=== PATIENT | female | born 1980 | race Caucasian/White ===

== ENCOUNTER 2022-03-29 07:20 | Outpatient (CLI) | payer OTHER, SELFPAY ==
--- NOTE | 2022-03-29 07:15 | CRLHL7_ITS ---
For Patients: As a result of the Century Cures Act, medical imaging exams and procedure reports are released immediately into your electronic medical record. You may view this report before your referring provider. If you have questions, please contact your health care provider. INDICATION: meningioma. Follow-up Comparison 08/27/2018, 12/27/2016, 01/12/2016. TECHNIQUE: Multiplanar T1, T2, FLAIR and diffusion-weighted imaging.. Post gadolinium T1 weighted sequences. FINDINGS: Stable postoperative changes of left frontal craniotomy for resection of meningioma. No residual recurrent tumor. No new abnormal enhancement or enhancing lesions elsewhere. Otherwise, normal brain parenchymal morphology. Stable encephalomalacia gliosis of the anterior left temporal lobe which may be due to old contusion. Scattered foci of T2/FLAIR signal hyperintensity within the white matter consistent with chronic small vessel ischemic changes or sequela of migraine headache No intracranial hemorrhage. No abnormal ventricular dilatation. Intracranial vascular flow voids preserved. No mass effect or midline shift. No restricted diffusion to suggest acute ischemia. Bilateral orbits are unremarkable. Normal appearing sella. Visualized paranasal sinuses and mastoid air cells are unremarkable. IMPRESSION: 1. Stable postop changes left frontal craniotomy for resection of meningioma. No residual or recurrent tumor. 2. No new abnormal enhancement or enhancing lesions elsewhere. 3. No acute intracranial abnormality. 4. Stable focal encephalomalacia and gliosis of the anterior inferior left temporal lobe which may be due to old contusion. 5. Otherwise, normal brain parenchymal morphology. Scattered foci of T2 signal within the white matter consistent with chronic small vessel ischemic changes or sequela of migraine headache Dictated by Winston Grajeda MD @ 03/29/2022 4:35:34 PM (Electronically Signed)
== END 2022-03-29 07:21 | disposition home or self-care (01) ==
PROVIDERS: PCP Family Medicine; Visit Provider Family Medicine
DX: Z86.011 Personal history of benign neoplasm of the brain (principal); G93.89 Other specified disorders of brain
CPT/HCPCS: 70553; A9575

== ENCOUNTER 2022-07-06 11:24 | Outpatient (CLI) | payer OTHER, SELFPAY ==
[2022-07-06 14:29] LABS: Albumin* 4.9 g/dL (3.3-5.0)
[2022-07-06 14:32] LABS: Alanine Aminotransferase* 37 U/L (4-35); Alkaline Phosphatase* 82 U/L (40-150); Aspartate Amino Transferase* 28 U/L (12-35); Bilirubin Direct* 0.1 mg/dL (0.0-0.5); Bilirubin Total* 0.6 mg/dL (0.1-1.5); Total Protein* 7.5 g/dL (6.0-8.3)
== END 2022-07-06 11:25 | disposition home or self-care (01) ==
PROVIDERS: PCP Family Medicine; Visit Provider Nurse Practitioner Family
DX: Z79.899 Other long term (current) drug therapy (principal)
CPT/HCPCS: 80076; 84443

== ENCOUNTER 2023-03-31 12:39 | Outpatient (CLI) | payer OTHER, SELFPAY ==
--- NOTE | 2023-03-31 13:00 | CRLHL7_ITS ---
For Patients: As a result of the Cures Act, medical imaging exams and procedure reports are released immediately into your electronic medical record. You may view this report before your referring provider. If you have questions, please contact your health care provider. BILATERAL SCREENING MAMMOGRAM WITH COMPUTER-AIDED DETECTION AND TOMOSYNTHESIS TECHNIQUE: CC and MLO views were obtained. These mammographic images have been obtained using full-field digital technique. These mammographic images were interpreted with the benefit of computer-aided detection. Breast Tomosynthesis was used in this interpretation. COMPARISON FILM: 01/01/21, 11/19/15. FINDINGS: The breasts are heterogeneously dense, which may obscure small masses IMPRESSION: There is no radiographic evidence for malignancy. ASSESSMENT: BI-RADS Category 1: Negative RECOMMENDATION: Routine screening mammogram in 1 year. A lay language report of this examination will be provided to the patient. João Jaeger M.D. Diagnostic Radiologist [email or web address] ANSON/[email or web address] / be/Dictated by: João Jaeger MD @ 04/03/2023 8:33:00 AM (Electronically Signed)
== END 2023-03-31 12:40 | disposition home or self-care (01) ==
LOC: MAMMO 12:41
PROVIDERS: PCP Family Medicine; Visit Provider Advanced Practice Midwife
DX: Z12.31 Encounter for screening mammogram for malignant neoplasm of breast (principal); R92.2 Inconclusive mammogram
CPT/HCPCS: 77063; 77067

== ENCOUNTER 2023-06-12 11:05 | Outpatient (CLI) | payer OTHER, SELFPAY | END 2023-06-12 11:06 | disposition home or self-care (01) | LOC: NFLDREF 06-13 22:32 | PROVIDERS: PCP Family Medicine; Referring Provider Family Medicine; Visit Provider Advanced Practice Midwife | DX: Z20.5 Contact with and (suspected) exposure to viral hepatitis (principal) | CPT/HCPCS: 86803 ==

== ENCOUNTER 2023-09-07 08:59 | Outpatient (CLI) | payer OTHER, SELFPAY | END 2023-09-07 09:00 | disposition home or self-care (01) | PROVIDERS: PCP Family Medicine; Visit Provider Physician Assistant | DX: Z01.419 Encounter for gynecological examination (general) (routine) without abnormal findings (principal); R68.82 Decreased libido; R03.0 Elevated blood-pressure reading, without diagnosis of hypertension; M25.50 Pain in unspecified joint; R68.2 Dry mouth, unspecified; Z13.29 Encounter for screening for other suspected endocrine disorder; Z13.6 Encounter for screening for cardiovascular disorders; Z13.1 Encounter for screening for diabetes mellitus | CPT/HCPCS: 80053; 80061; 84443; 86039; 86140; 86235; 86431 ==

== ENCOUNTER 2023-11-16 10:00 | Outpatient (RCR) | payer OTHER, SELFPAY | END 2024-02-07 13:14 | disposition home or self-care (01) | PROVIDERS: PCP Family Medicine; Visit Provider Physician Assistant | DX: N39.46 Mixed incontinence (principal); Z51.89 Encounter for other specified aftercare | CPT/HCPCS: 97110; 97161; 97535 ==

== ENCOUNTER 2024-04-12 13:25 | Outpatient (CLI) | payer OTHER, SELFPAY ==
--- NOTE | 2024-04-12 13:40 | CRLHL7_ITS ---
For Patients: As a result of the Century Cures Act, medical imaging exams and procedure reports are released immediately into your electronic medical record. You may view this report before your referring provider. If you have questions, please contact your health care provider. BILATERAL SCREENING MAMMOGRAM WITH COMPUTER-AIDED DETECTION AND TOMOSYNTHESIS TECHNIQUE: CC and MLO views were obtained. These mammographic images have been obtained using full-field digital technique. These mammographic images were interpreted with the benefit of computer-aided detection. Breast Tomosynthesis was used in this interpretation. COMPARISON FILM: 03/31/2023, 01/01/2021, 11/19/2015. FINDINGS: The breasts are heterogeneously dense, which may obscure small masses. IMPRESSION: There is no radiographic evidence for malignancy. ASSESSMENT: BI-RADS Category 1: Negative RECOMMENDATION: Routine screening mammogram in 1 year. A lay language report of this examination will be provided to the patient. João Jaeger M.D. Diagnostic Radiologist [email or web address] SP/Dictated by: João Jaeger MD @ 04/15/2024 8:55:00 AM (Electronically Signed)
== END 2024-04-12 13:26 | disposition home or self-care (01) ==
PROVIDERS: PCP Family Medicine; Visit Provider Physician Assistant
DX: Z12.31 Encounter for screening mammogram for malignant neoplasm of breast (principal); R92.2 Inconclusive mammogram
CPT/HCPCS: 77063; 77067

== ENCOUNTER 2024-09-27 14:06 | Outpatient (CLI) | payer OTHER, SELFPAY | END 2024-09-27 14:07 | disposition home or self-care (01) | LOC: NFLDREF 14:07 | PROVIDERS: PCP Registered Nurse; Visit Provider Family Medicine | DX: Z79.899 Other long term (current) drug therapy (principal) | CPT/HCPCS: 80053 ==

== ENCOUNTER 2025-06-17 17:51 | Emergency (ER) | payer OTHER, SELFPAY ==
[2025-06-17 18:04] VITALS: BP 132/85; PULSE 91; RESP 20; TEMP 36.1; O2SAT 99; BMI 33.4
--- NOTE | 2025-06-17 20:28 | ED.GENADULT ---
HPI - General Adult General Time Seen by Provider: 20:29 Date Seen: 06/17/25 Chief complaint: Unspecified Complaint, Adult Stated complaint: L hand pain post stiches in thumb Time Seen by Provider: 06/17/25 20:28 Source: patient Mode of arrival: ambulatory History of Present Illness HPI narrative: Chelly is a 45 yo female who presents to the ED for evaluation of left thumb pain. Patient states that she cut her left thumb on Monday with a knife while carving a pumpkin. Patient states that she did not think anything of it however the next day she still had some bleeding soon to urgent care Monday in the morning. Patient reports that on Monday she did have a laceration repair and did have 2 injections of lidocaine directly into the distal aspect of her thumb. Patient states she did have severe pain with injections which then resolved. Patient reports bacitracin and Telfa dressing and Coban compression applied locally, splinted for immobilization. Patient reports since this time she has had severe pain, and fullness/pressure in the distal aspect of her thumb. Patient reports trying to take Tylenol ibuprofen with no improvement of pain. Patient denies any fever, chills, no other complaints. Related Data Home Medications ?Medication ?Instructions ?Recorded ?Confirmed glucosamine-chondroitin 250 mg-200 1 tab PO ONCE 03/28/23 06/16/25 mg tablet (Osteo Bi-Flex) magnesium hydroxide 400 mg/5 mL 400 mg PO ONCE 03/28/23 06/16/25 oral suspension (Dulcolax (magnesium hydroxide)) calcium 325 mg-vit D3 12.5 1 tab PO BID 04/19/24 06/16/25 mcg-zinc 2.75 or-[id number] tablet (Citracal-D3 Maximum Plus) triamcinolone acetonide 0.1 % 1 applic topical BID PRN 01/16/25 06/16/25 topical ointment Previous Rx's ?Medication ?Instructions ?Recorded ondansetron HCl 4 mg tablet 4 mg PO Q8H PRN nausea and 09/15/22 vomiting #60 tabs epinephrine 0.3 mg/0.3 mL 0.3 mg (0.3 mL) IM Q5-15M PRN 12/24/24 injection, auto-injector (EpiPen anaphylaxis #2 ea 2-Donn) buspirone 30 mg tablet 30 mg PO BID #180 tabs 01/16/25 desvenlafaxine succinate 100 mg 100 mg PO DAILY #90 tabs 01/16/25 tablet,extended release 24 hr estradiol 0.01% (0.1 mg/gram) 1 g vaginal 3XW #42.5 grams 01/16/25 vaginal cream estradiol 0.1 mg/24 hr semiweekly 1 patch transdermal 2XW #24 ea 01/16/25 transdermal patch lamotrigine 150 mg tablet 150 mg PO DAILY #90 tabs 01/16/25 lorazepam 1 mg tablet 1 mg PO BID PRN anxiety #20 tabs 01/16/25 minoxidil 2.5 mg tablet 2.5 mg PO QDAY #90 tabs 01/16/25 propranolol 10 mg tablet 10 mg PO BID PRN anxiety #30 tabs 01/16/25 trazodone 50 mg tablet 50 mg PO QHS PRN sleep #90 tabs 01/16/25 dextroamphetamine-amphetamine 10 10 mg PO QDAY #90 tabs 02/27/25 mg tablet dextroamphetamine-amphetamine ER 30 mg PO QAM #90 caps 04/02/25 30 mg 24hr capsule,extend release Allergies Allergy/AdvReac Type Severity Reaction Status Date / Time tree nut Allergy Severe Anaphylaxis Verified 06/16/25 11:50 Review of Systems Narrative: Past medical history, past surgical history, medications, allergies, family history, and social history were reviewed with the patient. No additional pertinent items. A medically appropriate review of systems was performed with pertinent positives and negatives noted in HPI, all other systems negative. [facility] Medical History (Updated 06/17/25 @ 21:15 by Anju Lazo MD) History of basal cell carcinoma ?Z85.828 - Personal history of other malignant neoplasm of skin (ICD-10) History of Mohs micrographic surgery for skin cancer ?Z85.828 - Personal history of other malignant neoplasm of skin (ICD-10) ?Z98.890 - Other specified postprocedural states (ICD-10) Obesity (BMI 30-39.9) ?E66.9 - Obesity, unspecified (ICD-10) History of vitamin D deficiency ?Z86.39 - Personal history of other endocrine, nutritional and metabolic disease (ICD-10) Dry eyes ?H04.123 - Dry eye syndrome of bilateral lacrimal glands (ICD-10) Dry mouth ?R68.2 - Dry mouth, unspecified (ICD-10) Joint pain ?M25.50 - Pain in unspecified joint (ICD-10) ANURADHA (stress urinary incontinence, female) ?N39.3 - Stress incontinence (female) (male) (ICD-10) Migraine ?G43.909 - Migraine, unspecified, not intractable, without status migrainosus (ICD-10) Perimenopausal vasomotor symptoms ?N95.1 - Menopausal and female climacteric states (ICD-10) Hormone replacement therapy ?Z79.890 - Hormone replacement therapy (ICD-10) Pseudoangiomatous stromal hyperplasia of breast ?N64.89 - Other specified disorders of breast (ICD-10) Decreased libido ?R68.82 - Decreased libido (ICD-10) Hypertension ?I10 - Essential (primary) hypertension (ICD-10) Cauda equina compression (2013) ?G83.4 - Cauda equina syndrome (ICD-10) Meningioma ?D32.9 - Benign neoplasm of meninges, unspecified (ICD-10) Insomnia ?G47.00 - Insomnia, unspecified (ICD-10) ADD (attention deficit disorder) ?F98.8 - Other specified behavioral and emotional disorders with onset usually occurring in childhood and adolescence (ICD-10) PTSD (post-traumatic stress disorder) ?F43.10 - Post-traumatic stress disorder, unspecified (ICD-10) Anxiety ?F41.9 - Anxiety disorder, unspecified (ICD-10) Depression ?F32.A - Depression, unspecified (ICD-10) Surgical History Hx of LASIK ?Z98.890 - Other specified postprocedural states (ICD-10) History of lumpectomy of right breast (02/04/21) ?Z98.890 - Other specified postprocedural states (ICD-10) History of bilateral salpingectomy (04/03/18) ?Z90.79 - Acquired absence of other genital organ(s) (ICD-10) History of total abdominal hysterectomy (04/03/18) ?Z90.710 - Acquired absence of both cervix and uterus (ICD-10) History of D&C (04/06/10) ?Z98.890 - Other specified postprocedural states (ICD-10) History of ?Z98.891 - History of uterine scar from previous surgery (ICD-10) History of laminectomy (09/05/12) ?Z98.890 - Other specified postprocedural states (ICD-10) History of craniotomy (11/05/12) ?Z98.890 - Other specified postprocedural states (ICD-10) Family History Father Prostate cancer Lung cancer Mother Multiple myeloma Aunt Pancreatic cancer Grandfather Pancreatic cancer Prostate cancer Maternal Grandmother Colon cancer Paternal Grandfather Diabetes Uncle Diabetes 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. . Nonsmoker. Social alcohol use. Smoking Status: Never smoker Do you use any of these nicotine containing products: None Second hand tobacco smoke exposure: No How often do you have a drink containing alcohol: never How many standard drinks containing alcohol do you have on a typical day: 1 or 2 How often do you have six or more drinks on one occasion: Never AUDIT-C Alcohol total score: 0 Non-prescribed substance use: denies use service: No Exam Narrative: Exam Narrative: General: Afebrile, no acute distress HEENT: Normocephalic, atraumatic, conjunctiva normal. MMM Neck: non-tender, supple Cardio: regular rate. regular rhythm Resp: Normal work of breathing, no respiratory distress, lungs clear bilaterally, no wheezing, rhonchi, rales Chest/Back: no visual signs of trauma, no midline tenderness, no CVA tenderness Abdomen: soft, non distension, no tenderness, no peritoneal signs Neuro: alert and fully oriented. CN II-XII grossly intact. Grossly normal strength and sensation in all extremities. MSK: left thumb swollen, TTP, sutures in place distal ulna side of left thumb. compartments soft. Patient reports painful range of motion at the DIP, MCP however still has range of motion, no focal motor sensory deficit, no significant erythema, no drainage, no evidence of acute infection. Integumentary/Skin: no rash visualized, normal color Psych: normal affect, normal behavior Const: Vital Signs, click to edit/add: Vital Signs - 24 hr 06/17/25 18:04 Temperature 96.9 F L Pulse Rate [Pulse Oximeter] 91 Respiratory Rate 20 Blood Pressure [Ri ght Upper Arm] 132/85 Pulse Oximetry 99 Oxygen Delivery Me thod Room Air Course Vital Signs Vital signs: Initial Vital Signs Temperature 96.9 F L 06/17/25 18:04 Temperature Source Temporal Artery Scan 06/17/25 18:04 Pulse Rate 91 06/17/25 18:04 Respiratory Rate 20 06/17/25 18:04 Blood Pressure 132/85 06/17/25 18:04 Blood Pressure Mean 100 06/17/25 18:04 Blood Pressure Position Sitting 06/17/25 18:04 Pulse Oximetry 99 06/17/25 18:04 Oxygen Delivery Method Room Air 06/17/25 18:04 Vital Signs Temperature 96.9 F L 06/17/25 18:04 Pulse Rate 91 06/17/25 18:04 Respiratory Rate 20 06/17/25 18:04 Blood Pressure 132/85 06/17/25 18:04 Pulse Oximetry 99 06/17/25 18:04 Oxygen Delivery Method Room Air 06/17/25 18:04 Temperature 96.9 F L 06/17/25 18:04 Pulse Rate 91 06/17/25 18:04 Respiratory Rate 20 06/17/25 18:04 Blood Pressure 132/85 06/17/25 18:04 Pulse Oximetry 99 06/17/25 18:04 Oxygen Delivery Method Room Air 06/17/25 18:04 Medical Decision Making [facility] Narrative Medical decision making narrative: Chelly is a 45 yo female who presents to the ED for evaluation of left thumb pain. Upon arrival patient is nontoxic appearing, afebrile, in distress secondary to pain. On examination patient with significant pain, swelling, including so patient to distress neck her thumb however compartments are soft, patient still has range of motion at her the DIP and MCP, no fullness in thenar or hypothenar eminence. Suspect likely swelling/inflammation secondary to injury, laceration and repair as well as lidocaine. At this time compartments remain soft. No evidence of acute infection. I discussed with patient continue supportive care with ice, elevation, Tylenol, ibuprofen, close outpatient follow-up and strict return precautions discussed if increasing pain, swelling, redness, drainage, inability to range finger or any worsening symptoms. Patient agrees with the plan. Discharge Plan Discharge Clinical Impression: Pain of left thumb, Visit for wound check Patient Disposition: Home, Self-Care Condition: Stable Additional Instructions: Please follow-up in the next 3-5 days if no improvement of your symptoms. Please ice, elevate, continue to take Tylenol and ibuprofen as needed for pain. Please return to the emergency department if he develops severe worsening pain, significant increase in swelling/pressure/fullnesss in which you are not able to move your digit, or any worsening symptoms. It is a pleasure taking care of you today. We hope you feel better soon. Prescriptions: No Action [id number] [Citracal-D3 Maximum Plus] 325 mg-12.5 mcg -2.75 mg tablet 1 tab PO BID triamcinolone acetonide 0.1 % ointment 1 applic topical BID PRN estradiol 0.1 mg/24 hr patch semiweekly 1 patch transdermal 2XW Qty: 24 4RF Rx Instructions: apply 1 patch for 3 days alternating with 1 patch for 4 days each week for 3 wks per 4-wk cycle estradiol 0.01 % (0.1 mg/gram) cream 1 g vaginal 3XW Qty: 42.5 3RF lorazepam 1 mg tablet 1 mg PO BID PRN (Reason: anxiety) Qty: 20 0RF lamotrigine 150 mg tablet 150 mg PO DAILY Qty: 90 3RF desvenlafaxine succinate 100 mg tablet extended release 24 hr 100 mg PO DAILY Qty: 90 3RF buspirone 30 mg tablet 30 mg PO BID Qty: 180 3RF propranolol 10 mg tablet 10 mg PO BID PRN (Reason: anxiety) Qty: 30 2RF Rx Instructions: Take 10 mg at onset of anxiety/palpitations. Use as needed but no more than two times per day. trazodone 50 mg tablet 50 mg PO QHS PRN (Reason: sleep) Qty: 90 3RF minoxidil 2.5 mg tablet 2.5 mg PO QDAY Qty: 90 3RF ondansetron HCl 4 mg tablet 4 mg PO Q8H PRN (Reason: nausea and vomiting) Qty: 60 0RF magnesium hydroxide [Dulcolax (magnesium hydroxide)] 400 mg/5 mL suspension 400 mg PO ONCE glucosamine-chondroitin [Osteo Bi-Flex] 250-200 mg tablet 1 tab PO ONCE Rx Instructions: give after food/meal epinephrine [EpiPen 2-Donn] 0.3 mg/0.3 mL auto-injector 0.3 mg IM Q5-15M PRN (Reason: anaphylaxis) Qty: 2 0RF Rx Instructions: do not exceed 3 doses per episode dextroamphetamine-amphetamine 10 mg tablet 10 mg PO QDAY Qty: 90 0RF dextroamphetamine-amphetamine 30 mg capsule,extended release 24hr 30 mg PO QAM Qty: 90 0RF Follow Up/Referrals: Marya Maldonado, [employer] [Primary Care Provider, Family Practice] Stand Alone Forms: MyHealth Info Instructions
--- OUTSIDE RECORDS SUMMARY | 2025-06-17 20:57 | XMS_ITS | Clinical Summary ---
Author Organization [facility] Address [address] [place] [id number] Care Team Providers Care Founder Name Role Phone Pcp, No Primary Care Provider Unavailabl e Allergies Active Allergy Reactions Criticality Noted Date Comments Tree Nut Edema 02/18/2013 Swelling of mouth and hands Medications multivitamin (MVI) tablet Take 1 tablet by mouth once daily. Active acetaminophen (TYLENOL EXTRA STRGTH) 500 mg tablet Take 1 tablet by mouth every 6 hours if needed. Max acetaminophen dose: 4000mg in 24 hrs. 0 3 Active Calcium-Magnesi um-Zinc tab Take 1 tablet by mouth 2 times daily. 0 4 Active magnesium oxide 400 mg magnesium capsule 2 Active EPINEPHrine (EPIPEN) 0.3 mg/0.3 mL auto-injectorIn dications:Tree nut allergy Inject 0.3 mg intramuscular one time if needed (tree nut exposure). 1 Each 3 2 Active phototherapy light boxIndications: Adjustment disorder with mixed anxiety and depressed mood For home use. 1 Each 2 Active SUMAtriptan (IMITREX) 25 mg tabletIndicatio ns:Migraine with aura and without status migrainosus, not intractable Take 1 tablet at the onset of the Migraine and 2 hours later as needed. Max Dose: 200mg per 24hrs. 10 Tablet 3 2 Active propranoloL (INDERAL) 20 mg tabletIndicatio ns:Migraine with aura and without status migrainosus, not intractable Take 20 mg twice daily for one month then increase to 40 mg twice daily. 360 Tablet 3 2 Active triamcinolone (ARISTOCORT; KENALOG) 0.1 % creamIndication s:Benign cyst of skin Apply topically to affected area(s) 2 times daily. Use for up to 2 weeks and take a week off and repeat. 45 g 1 2 Active busPIRone (BUSPAR) 30 mg tabletIndicatio ns:Anxiety disorder, unspecified type Take 1 Tablet (30 mg) by mouth in the morning and 1 Tablet (30 mg) in the evening. 180 Tablet 1 2 Active desvenlafaxine succinate (PRISTIQ) 100 mg extended release tabletIndicatio ns:Moderate episode of recurrent major depressive disorder (HC) Take 1 Tablet (100 mg) by mouth every morning. 90 Tablet 1 2 Active traZODone (DESYREL) 50 mg tabletIndicatio ns:Psychophysio logical insomnia TAKE ONE-HALF TO 2 TABLETS BY MOUTH AT BEDTIME NEEDED FOR SLEEP 180 Tablet 1 2 Active dextroamphetami ne-amphetamine (Adderall XR) 30 mg Extended-Releas e capsuleIndicati ons:Cognitive impairment Take 1 Capsule (30 mg) by mouth once daily. 30 Capsule 2 Active dextroamphetami ne-amphetamine (AdderalL) 5 mg tabletIndicatio ns:Cognitive impairment Take 1 Tablet (5 mg) by mouth once daily. 30 Tablet 2 Active lamoTRIgine (LAMICTAL) 150 mg tabletIndicatio ns:Moderate episode of recurrent major depressive disorder (HC) Take 1 Tablet (150 mg) by mouth at bedtime. 90 Tablet 1 2 Active LORazepam (ATIVAN) 1 mg tabletIndicatio ns:Anxiety disorder, unspecified type TAKE ONE TABLET BY MOUTH EVERY DAY IF NEEDED FOR ANXIETY 30 Tablet 1 2 Active dextroamphetami ne-amphetamine (Adderall XR) 30 mg Extended-Releas e capsuleIndicati ons:Cognitive impairment Take 1 Capsule (30 mg) by mouth once daily. 30 Capsule 2 Active dextroamphetami ne-amphetamine (Adderall XR) 5 mg Extended-Releas e capsuleIndicati ons:Cognitive impairment Take 1 Capsule (5 mg) by mouth once daily. 30 Capsule 2 Active coenzyme q10 (CoQ-10) 100 mg cap Take 1 Capsule (100 mg) by mouth once daily. 0 2 Active Active Problems Problem Noted Date Diagnosed Date Tree nut allergy 08/01/2018 Incomplete bladder emptying 01/13/2016 Urge incontinence 01/13/2016 Iron deficiency anemia 10/12/2015 Posttraumatic stress disorder 08/12/2014 History Of Intracranial meningioma - surgically resected 11/04/2013 Overview (08/01/2018): Dr. Partida her Neurosurgeon from the [facility] recommended the following follow up imaging schedule for MRI of Brain with and without contrast in January 2013: Yearly for 5 years. Every other year for 5 years (on even years). Every 3 to 5 years indefinitely. Adjustment disorder with mixed anxiety and depre ssed mood 05/29/2013 Headache(784.0) 04/08/2013 Edema of face 04/08/2013 Lumbar disc disorder 11/01/2012 Anxiety state, unspecified 02/13/2007 Resolved Problems Problem Noted Date Diagnosed Date Resolved Date Major depressive disorder, r ecurrent episode, unspecified 02/11/2014 07/30/2019 Immunizations Immunization Administration Dates Next Due COVID-19 vaccine (Munetrix NTPluralsight 30mcg/0.3mL) PF, MDV 09/22/2020,09/01/2020 DTaP 10/19/1983 Influenza A (H1N1), Live Intranasal 06/15/2009 Influenza Intradermal PF 18-64 yrs 06/25/2014 Influenza RIV4 (Age 18+ Year s) PRESERV FREE 06/01/2019 Influenza Virus, Unspecified 06/21/2011 Influenza, IIV3 (Age 6-35 mos) 05/30/2018,2011 Influenza, IIV3 (Age >=3 years) 06/28/20 16,05/31/2012,06/16/2011,2002 Influenza, IIV4 06/17/2017,07/11/2016,06/03/2015 Influenza, IIV4 (=>6mos) MDV 06/11/2018 Influenza,LAIV4 Live Intrana amilcar (Flumist) 06/28/2013 MMR 05/22/1996,10/19/1983 Polio Virus, Unspecified 10/19/1983 Td (Age >=7 Years) 08/28/1997,04/28/1994 Family History Medical History Relation Name Comments Cancer-colon Maternal Grandmother Diabetes Maternal Uncle Diabetes Paternal Grandfather Relation Name Status Comments Maternal Grandmother Maternal Uncle Paternal Grandfather Social History Tobacco Use Types Packs/Day Years Used Date Smoking Tobacco: Never Smokeless Tobacco: Never Tobacco Cessation:Counseling Given: Yes Alcohol Use Standard Drinks/Week Comments Yes 0 (1 standard drink = 0.6 oz pur e alcohol) 2-3 times per week; 1-2 drinks PHQ-2 Answer Date Recorded PHQ-2 TOTAL SCORE 2 05/24/2022 Social Connections Answer Date Recorded Frequency of Communication with Friends and Fami ly Not on file 03/25/2022 Alcohol Use Answer Date Recorded How often do you have a drink containing alcohol ? 3 03/25/2022 How many drinks containing a lcohol do you have on a typical day when you are drinking? 0 03/25/2022 How often do you have five or more drinks on one occasion? 1 03/25/2022 Comments No Sex and Gender Information Value Date Recorded Sex Assigned at Female 10/14/2021 9:15 AM COLLET GLUER Legal Sex Female 5:24 AM COLLET GLUER Gender Identity Female 10/14/2021 9:15 AM COLLET GLUER Sexual Orientation Straight 10/14/2021 9: 15 AM COLLET GLUER Occupation Industry Job Start Date Job End Date Not on file Not on file Not on file Not on file Obstetrics History Para Term AB IAB SAB Ectopic Multiple Livin g Live Births 4 Last Filed Vital Signs Vital Sign Reading Time Taken Comments Blood Pressure 124/84 03/25/2022 7:42 AM CDT Pulse 74 03/25/2022 7:42 AM CDT Temperature 36.6 C (97.8 F) 03/25/2022 7:42 AM CDT Respiratory Rate 18 11/30/2017 6:05 PM CDT Oxygen Saturation 97% 03/25/2022 7:42 AM CDT Inhaled Oxygen Concentration - - Weight 94.9 kg (209 lb 3.2 oz) 03/25/2022 7:42 A M CDT Height 161.9 cm (5' 3.74) 03/25/2022 7:42 AM CD T Body Mass Index 36.2 03/25/2022 7:42 AM CDT Plan of Treatment Health Maintenance Due Date Last Done Comments HIV for age 15-65 1994 Hepatitis B series for 19+ (1 of 3 - 19+ 3-dose series) 1998 Tetanus booster 04/08/2021 04/08/2011 (Comp leted outside of [facility]), 08/28/1997, 04/28/1994 BMI (ht and wt on same day) for age 18+ 03/25/2023 03/25/2022, 07/31/2019, 06/19/2019, Additional history exists Depression screening for age 12+ 05/24/2023 05/24/2022, 05/24/2022, 03/29/2022, Additional history exists Colonoscopy through age 75 2024 Mammogram for age 45-75 04/12/2025 04/12/20 24, 01/01/2021, 11/19/2015 COVID-19 vaccine series (2024- season) 2025 05/26/2021, 09/22/2020, 09/01/2020 Influenza Vaccine (#1) 2025 9, 06/11/2018, 05/30/2018, Additional history exists Lipids for age 45-75 03/25/2027 03/25/2022, 10/06/19 16 RSV vaccine for adults or (1 - 1-dose 75+ series) 2054 Hepatitis C screening for age 18-79 Completed 03/25/2022 Pneumococcal series for age 6-49 Aged Out No longer eligible based on patient's age to complete this topic Procedures Procedure Name Priority Date/Time Associated Diagnosis Comments SCAN-MAMMOGRAPHY REPORT 04/12/2024 12:00 AM CDT ANTI HCV Routine 03/25/2022 9:05 AM CDT Need for hepatitis C screening test LIPID PANEL W REFLEX MEASURED LDL Routine 03/25/2022 9:05 AM CDT Lipid screening from Last 3 Months or Most Recently Relevant to Health Maintenance Results * SCAN-MAMMOGRAPHY REPORT (04/12/2024 12:00 AM CDT) Anatomical Region Laterality Modality Other us Scanner OTHER Final Result * (ABNORMAL) LIPID PANEL W REFLEX MEASURED LDL (03/25/2022 9:05 AM CDT) CHOLESTEROL,TOTAL 198 100 - 199 mg/dL 03/25/2022 5:38 PM CDT [facility] TRIGLYCERIDES 174(H) <150 mg/dL 03/25/2022 5:38 PM CDT [facility] HDL CHOLESTEROL 44 >40 mg/dL 5:38 PM CDT [facility] NON-HDL CHOLESTEROL 154(H) <145 mg/dl 03/25/2022 5:38 PM CDT [facility] CHOL/HDL RATIO 4.50(H) <4.50 03/25/2022 5:38 PM CDT [facility] LDL CHOLESTEROL 119 <=130 mg/dL 03/25/2022 5:38 PM CDT [facility] VLDL CHOLESTEROL 35(H) <=30 mg/dL 03/25/2022 5:38 PM CDT [facility] PROVIDER ORDERED STATUS RANDOM 03/25/2022 5:38 PM CDT [facility] Blood BLOOD SPECIMEN / Unknown Venipuncture / Unknown 03/25/2022 9:05 AM CDT 03/25/2022 9:05 AM CDT River Garcia MD CHEMISTRY [facility] [address] [place] [address], * ANTI HCV (03/25/2022 9:05 AM CDT) HEPATITIS C ANTIBODY Non-React mark Non-React mark 03/25/2022 5:58 PM CDT [facility] Comment:Antibodies to HCV no t detected; does not exclude the possibility of exposure to HCV. Blood BLOOD SPECIMEN / Unknown Venipuncture / Unknown 03/25/2022 9:05 AM CDT 03/25/2022 9:05 AM CDT us River Garcia MD SEND OUTS Final Resu lt [facility] [address] [place] [address], [place] from Last 3 Months or Most Recently Relevant to Health Maintenance Care Teams Founder Relationship Specialty Start Date End Date Pcp, No . PCP - General 06/17/22
== END 2025-06-17 21:24 | disposition home or self-care (01) ==
PROVIDERS: Emergency Provider Emergency Medicine; PCP Registered Nurse
DX: M79.645 Pain in left finger(s) (principal); S61.012A Laceration without foreign body of left thumb without damage to nail, initial encounter; W26.0XXD Contact with knife, subsequent encounter
CPT/HCPCS: 99283; 99284